=== PATIENT | male | born 1975 | race American Indian/Alaskan Native ===

== ENCOUNTER 2017-12-09 13:33 | Emergency (ER) | payer OTHER ==
[2017-12-09 13:34] VITALS: BMI 32.5
[2017-12-09 13:51] VITALS: BP 128/78; PULSE 68; RESP 18; TEMP 98.2; O2SAT 99
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
== END 2017-12-09 14:35 | disposition home or self-care (01) ==
LOC: ED 13:33
DX: S13.4XXA Sprain of ligaments of cervical spine, initial encounter (principal); V43.52XA Car driver injured in collision with other type car in traffic accident, initial encounter; Y92.410 Unspecified street and highway as the place of occurrence of the external cause; M54.2 Cervicalgia; M54.5 Low back pain